=== PATIENT | male | born 1975 | race Caucasian/White ===

== ENCOUNTER 2017-03-24 20:40 | Inpatient (IN) | payer OTHER ==
[~2017-03-24] VITALS: Ht 175.3 cm; Wt 97.8 kg
[~2017-03-24 20:40] MED LIST: HUMULIN R100 UNIT/1 SQ; NOVOLIN 70100 UNITS/ SQ
--- NOTE | 2017-03-28 11:59 | ER ---
ADMIT: 03/24/2017 RM/LOC: 404 [facility] MR#: [id number] [id number] [place], [place] [address] ROSEANNE KUMARI [address] [place] [address] Emergency Room Report SEX: M AGE: 42 : 1975 DATE: 03/24/2017 SUBJECTIVE: The patient is a 42-year-old male with a past medical history of diabetes since age of 52. He is taking insulin and has multiple episodes of DKA, came to the ER today with a chief complaint of feeling nauseous and dehydrated since this morning. The patient states that he uses insulin 70/30, 40 units in morning and 40 units in the afternoon, and this morning he just used 5 units because he ran out of it. After that, he felt nauseous. His blood sugar was high, and he came to the ER. Before coming to the ER at 8 o'clock, the patient states that at 07:00 p.m., his partner went to the [facility] and got the insulin 70/30, and he received 40 units as scheduled. The patient denies any chest pain, shortness of breath, headaches, cough, runny nose, fever, or abdominal pain. The last bowel movement was normal. The patient states he did not eat well since this morning. In the ER, the patient was tachycardic with a heart rate of 125, was not febrile, blood pressure systolic was 140s, fingerstick blood sugar was more than 550. The patient received IV fluids 1 L bolus NS. PHYSICAL EXAMINATION: HEAD AND NECK: Noncontributory. Mucous membranes were dry. CHEST: Clear bilaterally. HEART: Normal heart sounds without any murmurs. ABDOMEN: Soft and nontender. Rest of the physical exam is noncontributory. LABORATORY DATA: White blood cell came back 25.2 with hemoglobin of 17 and platelets of 520. The patient has a sodium of 133, potassium 5.7 and was acidotic with a bicarb of 11 with elevated anion gap to 30. Lipase was normal. Creatinine level was also increased to 1.8 from 1.0 last year, BUN was 31 and mildly elevated. The patient was started on second liter of IV fluids and Internal Medicine was consulted. The patient was admitted for further followups and treatments of diabetic ketoacidosis, acute kidney injury, and medication noncompliance. In the ER, the patient was started on insulin drip by Internal Medicine. Dawood Noel MD/ victoria JOB #: [id number] CC: Tay Fernández MD, Attending Physician Tay Fernández MD, Family Physician
--- NOTE | 2017-03-31 12:27 | DS ---
ADMIT: 03/24/2017 RM/LOC: 404 [facility] MR#: [id number] [id number] [place], [place] [address] ROSEANNE KUMARI [address] [place] [address] Discharge Summary SEX: M AGE: 42 : 1975 ADMISSION DATE: 03/24/2017 DISCHARGE DATE: 03/26/2017 FINAL DIAGNOSIS: 1. DKA (diabetic ketoacidosis). 2. Uncontrolled type 1 diabetes. 3. Acute kidney injury. 4. Hyperkalemia and hypokalemia. REASON FOR ADMISSION: A 42-year-old gentleman presented with nausea and vomiting. He had skipped a dose of insulin because he ran out. Blood sugars were found to be over 500 with positive ketones. HOSPITAL COURSE: He was admitted, given IV fluids, put on an insulin drip. Blood sugars were well maintained. On the , he was transitioned to sliding scale and subcu insulin. He did well with this, was feeling well. The next day, his potassium is 3.1, bicarb had gone from 10 up to 23. Kidney function was now normal so he was set to be discharged home. He was given 40 mEq p.o. potassium x1 and then set up to be discharged on his usual home doses of 70/30 insulin, which he takes 40 twice a day along with regular sliding scale per his home dosing. Follow up with Dr. Fernández in 1-2 weeks. He should have a low carb diet. Johnathan Dobbs MD/ priy[place]ag JOB #: [id number] CC: Tya Fernández MD, Attending Physician Tay Fernández MD, Family Physician
--- NOTE | 2017-03-31 12:27 | HP ---
ADMIT: 03/24/2017 RM/LOC: 404 [facility] MR#: [id number] [address] [address] ROSEANNE KUMARI [address] [place] [address] History and Physical SEX: M AGE: 42 : 1975 DATE OF SERVICE: CHIEF COMPLAINT: Nausea and vomiting. HISTORY OF PRESENT ILLNESS: This is a 42-year-old gentleman with history of type 1 diabetes and history of DKA, ran out of insulin, so he did take it yesterday morning and then in the afternoon developed nausea and vomiting, so he came to the emergency room. He was noted to have sugar about 500. He did have his girlfriend go get his insulin for him and about an hour and half before presentation gave 40 units of 70/30. Nonetheless, he came to the emergency room with nausea, vomiting, and abdominal pain. He has had a few liters of fluid and he is feeling much better since last night. He is wanting to eat a little bit. He has had no fever chills. No cough. No dysuria. No other signs of infection. He says he was out at his storage unit on Monday, and I think he was out in the heat a little too long, thinks that is maybe what triggered all this, but otherwise no signs of infection. PAST MEDICAL HISTORY: Includes hernia surgery, type 1 diabetes, and he has had a sebaceous cyst removed. SOCIAL HISTORY: He is a nonsmoker, he is a nondrinker, denies any drug use. He is currently not working. He lives with his girlfriend. FAMILY HISTORY: Significant for type 2 diabetes in his mom and grandfather. Thinks there was a type 1 diabetes in an uncle. ALLERGIES: NONE. MEDICATIONS: Include: 1. 70/30 insulin 40 units b.i.d. 2. Regular insulin sliding scale. REVIEW OF SYSTEMS: Other complete review of systems obtained and negative except as above. PHYSICAL EXAMINATION: VITAL SIGNS: Temperature 97.7, pulse 95, respirations 16, blood pressure 110/56, and oxygen saturation 94% on room air. GENERAL: This is a well-appearing 42-year-old gentleman in no apparent distress. He is alert. He is oriented. HEENT: Pupils equal, round, and reactive to light and accommodation. His extraocular muscles intact. Throat is clear. He has poor dentition. NECK: Supple. Trachea midline. Thyroid not palpable. HEART: Regular rate and rhythm. LUNGS: Clear to auscultation bilaterally. ABDOMEN: Soft, without tenderness. He has normal bowel sounds. EXTREMITIES: Lower extremities have no edema. NEUROLOGIC: Cranial nerves are intact. Moves all extremities equally bilaterally. SKIN: Exam is normal. ADMIT: 03/24/2017 RM/LOC: 404 [facility] MR#: [id number] [place], [place] [id number] [address] [place] [address] History and Physical SEX: M AGE: 42 : 1975 LABORATORY AND X-RAY DATA: Initial sodium was 132, potassium 5.7, bicarb 11, BUN 31, creatinine 1.8. Serum ketones were small. White count was 25,000, platelets of 520, and hemoglobin of 17.0. Chest x-ray is normal. Urine just showed ketones. ASSESSMENT: 1. Diabetic ketoacidosis. 2. Diabetes type 1 uncontrolled. Last A1c of 8.2, last July. 3. Acute kidney injury. 4. Hyperkalemia. 5. Nausea and vomiting. PLAN: The patient has been admitted to the hospital. We will continue with IV fluids. He has already been getting an insulin drip, his sugars are a little better controlled right now. His bicarb was 11, it has come up to 16 on his last check and his creatinine is improved. So we will try to transition him off his insulin drip at this time and then on to usual 70/30 insulin. We will continue with his IV fluid for now as well. Johnathan Dobbs MD/ victoria JOB #: [id number] CC: Tay Fernández, Attending Physician Tay Fernández, Family Physician
[2017-06-17] MEDS ORDERED: TYLENOL DPS325 MG PO (13:07)
== END 2017-03-26 13:40 | disposition home or self-care (01) | DRG 638 ==
LOC: ER 20:40 → 4PCU 22:10
PROVIDERS: ADMIT Internal Medicine
DX: E10.10 Type 1 diabetes mellitus with ketoacidosis without coma (principal); N17.9 Acute kidney failure, unspecified; E87.5 Hyperkalemia; E87.6 Hypokalemia; Z91.128 Patient's intentional underdosing of medication regimen for other reason